=== PATIENT | female | born 1980 | race Caucasian/White ===

== ENCOUNTER 2017-09-26 17:00 | Emergency (ER) | payer SELFPAY ==
[2017-09-26 17:08] VITALS: BP 117/71
[2017-09-26] MEDS ORDERED: IBUPROFEN 800 MG TABLET PO ONE (17:10)
--- NOTE | 2017-09-26 17:11 | ER Document Report ---
ED General - General Chief Complaint: Knee Injury Stated Complaint: FALL, LEFT KNEE PAIN Time Seen by Provider: 09/26/17 17:09 Mode of Arrival: Wheelchair Information source: Patient Notes: 37-year-old female presents with complaints of left knee pain and presents her right clavicle. Patient notes she had a mechanical fall yesterday denies any syncope denies any chest pain. Patient notes that she has been able to ambulate but it hurts when she bends her knee. She denies any weakness numbness or laxity in the knee TRAVEL OUTSIDE OF THE [place] IN LAST 30 DAYS: No - HPI Onset: Yesterday Onset/Duration: Sudden Quality of pain: Achy Severity: Mild Pain Level: 1 Associated symptoms: Body/muscle aches Exacerbated by: Movement, Walking Relieved by: Denies Similar symptoms previously: No Recently seen / treated by doctor: No - Related Data Allergies/Adverse Reactions: No Known Allergies Allergy (Verified 09/26/17 17:00) Past Medical History - Social History Smoking Status: Current Every Day Smoker Cigarette use (# per day): Yes Chew tobacco use (# tins/day): No Smoking Education Provided: No Frequency of alcohol use: Occasional Drug Abuse: None Family History: Reviewed & Not Pertinent Patient has suicidal ideation: No Patient has homicidal ideation: No Renal/ Medical History: Denies: Hx Peritoneal Dialysis Review of Systems - Review of Systems Notes: REVIEW OF SYSTEMS: CONSTITUTIONAL : Denies fever, chills, or sweats. Denies recent illness. EENT: Denies eye, ear, throat, or mouth pain or symptoms. Denies nasal or sinus congestion or discharge. Denies throat, tongue, or mouth swelling or difficulty swallowing. CARDIOVASCULAR: Denies chest pain. Denies palpitations or racing or irregular heart beat. Denies ankle edema. RESPIRATORY: Denies cough, cold, or chest congestion. Denies shortness of breath, difficulty breathing, or wheezing. Admits to right clavicular pain GASTROINTESTINAL: Denies abdominal pain or distention. Denies nausea, vomiting , or diarrhea. Denies blood in vomitus, stools, or per rectum. Denies black, tarry stools. Denies constipation. GENITOURINARY: Denies difficulty urinating, painful urination, burning, frequency, blood in urine, or discharge. FEMALE GENITOURINARY: Denies vaginal bleeding, heavy or abnormal periods, irregular periods. Denies vaginal discharge or odor. MUSCULOSKELETAL: Admits knee pain SKIN: Denies rash, lesions or sores. HEMATOLOGIC : Denies easy bruising or bleeding. LYMPHATIC: Denies swollen, enlarged glands. NEUROLOGICAL: Denies confusion or altered mental status. Denies passing out or loss of consciousness. Denies dizziness or lightheadedness. Denies headache. Denies weakness or paralysis or loss of use of either side. Denies problems with gait or speech. Denies sensory loss, numbness, or tingling. Denies seizures. PSYCHIATRIC: Denies anxiety or stress. Denies depression, suicidal ideation, or homicidal ideation. ALL OTHER SYSTEMS REVIEWED AND NEGATIVE. PHYSICAL EXAMINATION: GENERAL: Well-appearing, well-nourished and in no acute distress. HEAD: Atraumatic, normocephalic. EYES: Pupils equal round and reactive to light, extraocular movements intact, conjunctiva are normal. ENT: Nares patent, oropharynx clear without exudates. Moist mucous membranes. NECK: Normal range of motion, supple without lymphadenopathy LUNGS: Breath sounds clear to auscultation bilaterally and equal. No wheezes rales or rhonchi. mild echymosis of the right clavicle HEART: Regular rate and rhythm without murmurs ABDOMEN: Soft, nontender, nondistended abdomen. No guarding, no rebound. No masses appreciated. Female : deferred Musculoskeletal: Normal range of motion, no pitting or edema. No cyanosis. no laxity of the left knee, full rom, mild tenderness with rom NEUROLOGICAL: Cranial nerves grossly intact. Normal speech, normal gait. Normal sensory, motor exams PSYCH: Normal mood, normal affect. SKIN: Warm, Dry, normal turgor, no rashes or lesions noted. Dictation was performed using [employer] voice recognition software Physical Exam - Vital signs Vitals: Temp Pulse Resp BP Pulse Ox 98.7 F 79 16 117/71 99 09/26/17 17:04 09/26/17 17:04 09/26/17 17:04 09/26/17 17:04 09/26/17 17:04 Course - Re-evaluation Re-evalutation: 09/26/17 18:24 Patient will be placed in knee immobilizer given crutches follow-up with orthopedics, clavicle x-ray noted no acute abnormality regarding Patient overall looks well is in no distress After performing a Medical Screening Examination, I estimate there is LOW risk for INTRACRANIAL HEMORRHAGE, UNSTABLE SPINE FRACTURE, CENTRAL CORD SYNDROME, CAUDA EQUINA, THORACIC AORTIC DISSECTION, PNEUMOTHORAX, PERFORATED BOWEL, RUPTURED ABDOMINAL AORTIC ANEURYSM, ACUTE TENDON RUPTURE, COMPARTMENT SYNDROME, or OPEN FRACTURE, thus I consider the discharge disposition reasonable. Also, there is no evidence or peritonitis, sepsis, or toxicity. I have reevaluated this patient multiple times and no significant life threatening changes are noted. The patient and I have discussed the diagnosis and risks, and we agree with discharging home to follow-up with their primary doctor with the understanding that symptoms and presentations can change. We also discussed returning to the Emergency Department immediately if new or worsening symptoms occur. We have discussed the symptoms which are most concerning (e.g., bloody stool, fever, changing or worsening pain, vomiting) that necessitate immediate return. - Vital Signs Vital signs: Temp Pulse Resp BP Pulse Ox 98.7 F 79 16 117/71 99 09/26/17 17:04 09/26/17 17:04 09/26/17 17:04 09/26/17 17:04 09/26/17 17:04 - Diagnostic Test Radiology reviewed: Image reviewed, Reports reviewed Discharge - Discharge Clinical Impression: Pain of right clavicle Left knee pain Qualifiers: Chronicity: acute Qualified Code(s): M25.562 - Pain in left knee Condition: Stable Disposition: HOME, SELF-CARE Instructions: Ice & Elevation ([facility]), Suspected Internal Knee Injury ([facility]) Referrals: ALOK LUA MD [ACTIVE STAFF] - Follow up in 3-5 days
--- NOTE | 2017-09-26 18:02 | RADIOLOGY REPORT (SQ) ---
EXAM DESCRIPTION: KNEE LEFT 3 VIEWS COMPLETED DATE/TIME: 09/26/2017 5:33 pm REASON FOR STUDY: fall COMPARISON: None. NUMBER OF VIEWS: Three views. TECHNIQUE: AP, lateral, and sunrise patella radiographic images acquired of the left knee. LIMITATIONS: None. FINDINGS: MINERALIZATION: Normal. BONES: No acute fracture or dislocation. JOINT: No effusion. SOFT TISSUES: No soft tissue swelling. No radio-opaque foreign body. IMPRESSION: No radiographic evidence of acute injury. TECHNICAL DOCUMENTATION: JOB ID: [id number] [place]-[id number] 2010 [employer]- All Rights Reserved
--- NOTE | 2017-09-26 18:04 | RADIOLOGY REPORT (SQ) ---
EXAM DESCRIPTION: CLAVICLE RIGHT COMPLETED DATE/TIME: 09/26/2017 5:34 pm REASON FOR STUDY: pain COMPARISON: None. NUMBER OF VIEWS: Two views. TECHNIQUE: Frontal and angled images were acquired of the right clavicle. LIMITATIONS: None. FINDINGS: MINERALIZATION: Normal. BONES: No acute fracture or dislocation. SOFT TISSUES: No obvious swelling or radiopaque foreign body. IMPRESSION: No radiographic evidence of acute injury. TECHNICAL DOCUMENTATION: JOB ID: [id number] 2010 [employer]- All Rights Reserved
== END 2017-09-26 18:33 | disposition home or self-care (01) ==
LOC: ER 17:00
DX: M25.511 Pain in right shoulder (principal); M25.562 Pain in left knee; M79.1 Myalgia; W19.XXXA Unspecified fall, initial encounter; F17.210 Nicotine dependence, cigarettes, uncomplicated
CPT/HCPCS: 99283; 73000; 73562; L1830

== ENCOUNTER 2019-08-25 23:45 | Emergency (ER) | payer BC ==
[2019-08-26 00:49] LABS: ABSOLUTE BASOPHILS # (AUTO) 0.1 10^3/uL (0.0-0.2); ABSOLUTE EOSINOPHILS # (AUTO) 1.5 10^3/uL (0.0-0.6); ABSOLUTE LYMPHOCYTES (AUTO) 1.5 10^3/uL (0.5-4.7); ABSOLUTE MONOCYTES (AUTO) 0.8 10^3/uL (0.1-1.4); ABSOLUTE NEUT (AUTO) 5.9 10^3/uL (1.7-8.2); BASOPHILS % (AUTO) 1.3 % (0-2); EOSINOPHILS % (AUTO) 15.7 % (0-6); HEMATOCRIT 42.4 % (36.0-47.0); HEMOGLOBIN 14.5 g/dL (12.0-15.5); LYMPHOCYTES % (AUTO) 15.3 % (13-45); MEAN CORPUSCULAR HEMOGLOBIN 30.7 pg (27.0-33.4); MEAN CORPUSCULAR HGB CONC 34.1 g/dL (32.0-36.0); MEAN CORPUSCULAR VOLUME 90 fl (80-97); MONOCYTES % (AUTO) 7.7 % (3-13); PLATELET COUNT 264 10^3/uL (150-450); RED BLOOD COUNT 4.71 10^6/uL (3.72-5.28); RED CELL DISTRIBUTION WIDTH 13.2 % (11.5-14.0); TOTAL CELLS COUNTED % (AUTO) 100 %; WHITE BLOOD COUNT 9.8 10^3/uL (4.0-10.5)
[2019-08-26 00:52] LABS: APPEARANCE,URINE CLEAR; BILIRUBIN,URINE NEGATIVE (NEGATIVE); COLOR,URINE STRAW; GLUCOSE, URINE NEGATIVE (NEGATIVE); KETONES,URINE NEGATIVE (NEGATIVE); LEUKOCYTE ESTERASE,URINE TRACE (NEGATIVE); NITRITE,URINE NEGATIVE (NEGATIVE); PROTEIN,URINE NEGATIVE (NEGATIVE); URINE SPECIFIC GRAVITY 1.004; UROBILINOGEN,URINE NEGATIVE mg/dL (<2.0)
[2019-08-26 01:13] LABS: URINE AMPHETAMINES SCREEN NEGATIVE; URINE BARBITURATES SCREEN NEGATIVE; URINE BENZODIAZEPINES SCREEN NEGATIVE; URINE COCAINE SCREEN UNCONFIRMED POSITIVE; URINE MARIJUANA (THC) SCREEN NEGATIVE; URINE METHADONE SCREEN NEGATIVE; URINE PHENCYCLIDINE SCREEN NEGATIVE
[2019-08-26 01:18] LABS: ACETAMINOPHEN < 10 ug/mL (10-30); ALBUMIN 3.6 g/dL (3.5-5.0); ALCOHOL < 10 mg/dL (NONE DETECTED); ALKALINE PHOSPHATASE 48 U/L (38-126); ANION GAP 6 (5-19); ASPARTATE AMINO TRANSFERASE 22 U/L (14-36); BILIRUBIN,TOTAL 1.1 mg/dL (0.2-1.3); BLOOD UREA NITROGEN 12 mg/dL (7-20); CALCIUM 9.4 mg/dL (8.4-10.2); CARBON DIOXIDE 26 mmol/L (22-30); CHLORIDE 109 mmol/L (98-107); GLUCOSE 107 mg/dL (75-110); POTASSIUM 3.5 mmol/L (3.6-5.0); SALICYLATE < 1.0 mg/dL (2.0-20.0)
--- NOTE | 2019-08-26 01:55 | ER Document Report ---
ED Psych Disorder / Suicide - General Chief Complaint: Overdose Stated Complaint: PSYCH Time Seen by Provider: 08/26/19 01:30 Primary Care Provider: QUEENIE CALLOWAY PA-C [Primary Care Provider] - Follow up as needed Notes: Patient is a 38-year-old female that comes emergency department for chief complaint of a suicide attempt. Patient arrives from home by EMS, patient states she thinks her roommate called EMS, reportedly patient took about 300 mg of Benadryl by mouth in an attempt to kill herself. Patient states she had just hung up from a conversation with her boyfriend who is in long term [id number]. Patient states that she was hoping she would "go to sleep and never wake up". She states she has attempted suicide in the past but will not tell me how. She denies any daily prescribed medications. She denies alcohol or recreational drugs. Patient denies taking anything else tonight. Patient states she just feels tired and denies any other complaints. Nursing staff reports to me that patient was found to be initially hypoglycemic at 61 and was given 15 g of oral glucose during transport. TRAVEL OUTSIDE OF THE [place] IN LAST 30 DAYS: No - Related Data Allergies/Adverse Reactions: No Known Allergies Allergy (Verified 09/26/17 17:00) Past Medical History - General Information source: Patient - Social History Smoking Status: Current Every Day Smoker Frequency of alcohol use: Occasional Drug Abuse: Marijuana Lives with: Family Family History: Reviewed & Not Pertinent Patient has suicidal ideation: Yes Patient has homicidal ideation: No Renal/ Medical History: Denies: Hx Peritoneal Dialysis - Immunizations Immunizations up to date: Yes Hx Diphtheria, Pertussis, Tetanus Vaccination: Yes Review of Systems - Review of Systems Constitutional: No symptoms reported EENT: No symptoms reported Cardiovascular: No symptoms reported Respiratory: No symptoms reported Gastrointestinal: No symptoms reported Genitourinary: No symptoms reported Female Genitourinary: No symptoms reported Musculoskeletal: No symptoms reported Skin: No symptoms reported Hematologic/Lymphatic: No symptoms reported Neurological/Psychological: See HPI Physical Exam - Vital signs Vitals: Temp Pulse Resp BP Pulse Ox 98.2 F 82 16 137/84 H 97 08/25/19 23:46 08/25/19 23:46 08/25/19 23:46 08/25/19 23:46 08/25/19 23:46 - Notes Notes: GENERAL: Sleeping but easily aroused HEAD: Normocephalic, atraumatic. EYES: Pupils equal, round, and reactive to light. Extraocular movements intact. ENT: Oral mucosa moist, tongue midline. Oropharynx unremarkable. Airway patent. NECK: Full range of motion. Supple. Trachea midline. LUNGS: Clear to auscultation bilaterally, no wheezes, rales, or rhonchi. No respiratory distress. HEART: Regular rate and rhythm. No murmur ABDOMEN: Soft, non-tender. Non-distended. EXTREMITIES: Moves all 4 extremities spontaneously. No edema, normal radial and dorsalis pedis pulses bilaterally. No cyanosis. BACK: no cervical, thoracic, lumbar midline tenderness. No saddle anesthesia, normal distal neurovascular exam. Moves all extremities in full range of motion. NEUROLOGICAL: Alert and oriented x3. Normal speech. Cranial nerves II through XII grossly intact. PSYCH: Normal affect, normal mood. Makes good eye contact, answers questions appropriately SKIN: Warm, dry, normal turgor. No rashes or lesions noted. Course - Re-evaluation Re-evalutation: 08/26/19 Preeti ARREDONDO reports that she had contacted poison control on arrival and they recommended EKG, Tylenol level, basic chemistries, and monitoring. No timeframe for monitoring was given but based on taking Benadryl I suspect this was approximately 6 hours for medical clearance, they will be contacted again to clarify and they state they will call back as well. On my evaluation patient is mildly drowsy but easily arousable to just verbal stimuli, alert and aware during evaluation. She is not tachycardic, hypotensive, or febrile. She will be on cardiac monitoring until she is medically cleared. CBC unremarkable, chemistry unremarkable with potassium that is borderline, urinalysis nonspecific and cultured, drug screen is negative except for cocaine. EKG unremarkable. 08/26/19 On repeated evaluations patient has remained sleeping but easily aroused simply to voice, she has not been tachycardic, she has not had any additional complaints. She has been monitored for over 6 hours. We contacted poison control and they state patient is now medically cleared. Patient is pending mental health team evaluation. Patient did state agreement. Discussed with Dr. Caro who completed the IVC paperwork by signing it. - Vital Signs Vital signs: Temp Pulse Resp BP Pulse Ox 97.6 F 108 H 27 H 94/74 L 95 08/26/19 03:50 08/26/19 03:50 08/26/19 06:01 08/26/19 06:01 08/26/19 04:01 - Laboratory Result Diagrams: 08/26/19 00:10 08/26/19 00:10 Laboratory results interpreted by me: 08/26/19 08/26/19 08/26/19 00:10 00:10 00:10 Eos % (Auto) 15.7 H Absolute Eos (auto) 1.5 H Potassium 3.5 L Chloride 109 H Total Protein 6.0 L Urine Blood SMALL H Ur Leukocyte Esterase TRACE H Salicylates < 1.0 L Acetaminophen < 10 L - EKG Interpretation by Me Additional EKG results interpreted by me: EKG shows sinus rhythm at a rate of 77, normal axis, QTC 449, no T wave inversions or ST segment changes in consecutive leads Discharge - Discharge Clinical Impression: Intentional overdose of drug in tablet form, Suicide attempt Condition: Stable Disposition: PSYCH HOSP/UNIT Referrals: QUEENIE CALLOWAY PA-C [Primary Care Provider] - Follow up as needed
--- NOTE | 2019-08-26 09:55 | PSYCHOLOGICAL NOTE ---
Psych Note - Psych Note Date seen by psych provider: 08/26/19 Time seen by psych provider: 08:00 Psych Note: Reason For Consult:Reported intentional overdose Consent Permissions:none provided Patient is a 38-year-old female that comes emergency department for chief co mplaint of a suicide attempt. Patient reports that she arrived via EMS because "I took some... A lot of Benadryl." She reports that she is "stressed out and depressed." She refuses to clarify or provide trigger. Patient denies any knowledge of who contacted law enforcement or EMS stating she did not tell anyone that she attempted to kill herself. She confirms she does have 2 roommates. Patient states that she attempted to harm herself previously however it was "a long time ago." Patient reports she does not remember what she did in this reports previous attempt. She denies any history of inpatient psychiatric treatment, outpatient mental health services, or any medications. Patient denies a history of self-harm behaviors (eg cutting, burning, etc). When asked if patient is glad she was brought to the hospital she states "yeah.. I do not know." Patient is alert and orientated to person, place, time and circumstance. Mood is dysphoric with blunted affect. Patient reports intentional overdose of Benadryl. She denies homicidal ideation. Delusions are absent and behaviors congruent with an intact reality based presentation ie organized and linear thought process. Eye contact is fair. Conversational speech is within normal rate, tone and prosody. Intellectual abilities appear to be within the average range. Attention and concentration are fair. Insight, judgment, impulse control are fair. Diagnosis: Major Depressive disorder; recurrent Medication recommendations per [facility]'s contracted psychiatrist Dr. Angelia ESTRADA are as follows pending Impression\\plan:Patient is recommended to continue under IVC. Patient confirms intentional overdose and one previous attempt "years ago." She has disclosed she has never received psychiatric treatment and does not full enagage about her trigger(s) or discussion on her history. Patient has been accepted to [facility]; transportation has been requested. Dr. Harris was consulted to care management of this patient; attending physicians in agreement with recommendations and disposition.
--- NOTE | 2019-08-26 13:46 | EKG REPORT ---
SEVERITY:- ABNORMAL ECG - SINUS RHYTHM LISA, CONSIDER BIATRIAL ABNORMALITIES : Confirmed by: Hazel Salas MD 26-Aug-2019 13:45:56
--- NOTE | 2019-08-26 16:33 | ER Document Report ---
Doctor's Note Notes: 08/26/19 16:32 patient without any complaints at this time. Patient has been accepted to psychiatric facility. Nontoxic, well-appearing.
[2019-08-27 00:32] VITALS: BP 108/63
--- NOTE | 2019-08-27 08:21 | ER Document Report ---
Doctor's Note Notes: 08/27/19 08:17 Transport officer is in the department to transport patient to [facility]. I went and spoke with the patient, she is calm, she is cooperative, she did not know that she was being transported to another facility however she took this news well. Patient is stable for transport at this time.
== END 2019-08-27 08:45 ==
LOC: ER 23:45
DX: T45.0X2A Poisoning by antiallergic and antiemetic drugs, intentional self-harm, initial encounter (principal); R40.0 Somnolence; Y92.009 Unspecified place in unspecified non-institutional (private) residence as the place of occurrence of the external cause; E16.2 Hypoglycemia, unspecified; F12.10 Cannabis abuse, uncomplicated; Z75.1 Person awaiting admission to adequate facility elsewhere; F17.200 Nicotine dependence, unspecified, uncomplicated
CPT/HCPCS: 36415; 80053; 80307; 81001; 82962; 84703; 85025; 87086; 87088; 87186; 93005; 93010; 99285

== ENCOUNTER 2020-03-07 00:11 | Emergency (ER) | payer BC ==
[2020-03-07] MEDS ORDERED: PREDNISONE 20 MG TABLET PO ONE (01:37)
--- NOTE | 2020-03-07 01:38 | ER Document Report ---
ED General - General Chief Complaint: Cough Stated Complaint: BAD COUGH Time Seen by Provider: 03/07/20 01:24 Primary Care Provider: QUEENIE CALLOWAY PA-C [Primary Care Provider] - Follow up as needed Notes: Patient is a 39-year-old female who comes emergency department for chief complaint of worsening cough for the past 3 days. Patient also states that earlier today her right upper eyelid started swelling and itching. She denies eye pain, visual changes, fever, shortness of breath, wheezing, sore throat, congestion, body aches, nausea, vomiting, or sick contacts. She smokes. She takes no daily medications. She denies any recreational drugs or medical history. TRAVEL OUTSIDE OF THE [place] IN LAST 30 DAYS: No - Related Data Allergies/Adverse Reactions: No Known Allergies Allergy (Verified 09/26/17 17:00) Past Medical History - General Information source: Patient - Social History Smoking Status: Current Every Day Smoker Smoking Education Provided: Yes - <3 min Frequency of alcohol use: Social Drug Abuse: None Lives with: Family Family History: Reviewed & Not Pertinent Patient has homicidal ideation: No Renal/ Medical History: Denies: Hx Peritoneal Dialysis - Immunizations Immunizations up to date: Yes Hx Diphtheria, Pertussis, Tetanus Vaccination: Yes Review of Systems - Review of Systems Constitutional: No symptoms reported EENT: See HPI Cardiovascular: No symptoms reported Respiratory: See HPI Gastrointestinal: No symptoms reported Genitourinary: No symptoms reported Female Genitourinary: No symptoms reported Musculoskeletal: No symptoms reported Skin: No symptoms reported Hematologic/Lymphatic: No symptoms reported Neurological/Psychological: No symptoms reported Physical Exam - Vital signs Vitals: Temp Pulse Resp BP Pulse Ox 98.5 F 58 L 16 118/70 100 03/07/20 01:18 03/07/20 01:18 03/07/20 01:18 03/07/20 01:18 03/07/20 01:18 - Notes Notes: GENERAL: Alert, interacts well. No acute distress. HEAD: Normocephalic, atraumatic. EYES: Pupils equal, round, and reactive to light. Extraocular movements intact. Sclera clear and not injected. There is slight edema and swelling of the right upper eyelid, however there is no shiny erythema, no tenderness, no other signs of swelling of the face or eyes. ENT: Oral mucosa moist, tongue midline. Oropharynx unremarkable. Airway patent. NECK: Full range of motion. Supple. Trachea midline. No lymphadenopathy. LUNGS: Clear to auscultation bilaterally, no wheezes, rales, or rhonchi. No respiratory distress. Non-tender chest wall. HEART: Regular rate and rhythm. No murmur ABDOMEN: Soft, non-tender. Non-distended. EXTREMITIES: Moves all 4 extremities spontaneously. No edema, normal radial and dorsalis pedis pulses bilaterally. No cyanosis. BACK: no cervical, thoracic, lumbar midline tenderness. No saddle anesthesia, normal distal neurovascular exam. Moves all extremities in full range of motion. NEUROLOGICAL: Alert and oriented x3. Normal speech. Cranial nerves II through XII grossly intact. Strength 5/5 in all extremities. PSYCH: Normal affect, normal mood. SKIN: Warm, dry, normal turgor. No rashes or lesions noted. Course - Re-evaluation Re-evalutation: Patient with occasional coughing episodes with a nonproductive cough, clear lungs, no hypoxia, no respiratory distress. She speaks in full sentences. No fever. Patient also has a slightly swollen and edematous right upper eyelid with reported itching to the area. Eye exam is unremarkable, no other signs of allergic reaction, patent airway. Given prednisone. Chest x-ray is unremarkable. Discussed options with patient. Patient is requesting be tested for COVID-19 and this was performed. Discussed smoking cessation with patient and she states agreement. I do have a low suspicion for COVID-19, evaluation is most consistent with mild bronchitis in the setting of smoking, possible random allergic reaction, no concerning findings otherwise. Patient will be placed on prednisone, antihistamines, discussed expectations, follow-up, and return precautions. Patient states appreciation and agreement with plan. - Vital Signs Vital signs: Temp Pulse Resp BP Pulse Ox 98.3 F 66 14 110/67 97 03/07/20 04:12 03/07/20 04:12 03/07/20 04:12 03/07/20 04:12 03/07/20 04:12 Discharge - Discharge Clinical Impression: Cough, Tobacco abuse Swollen eyelid Qualifiers: Laterality: right Qualified Code(s): H02.843 - Edema of right eye, unspecified eyelid Condition: Stable Disposition: HOME, SELF-CARE Additional Instructions: The swelling of your eyelid appears to be allergic, take the prednisone as prescribed, take the antihistamine as prescribed for 1 week, this should simply resolve with time. Your chest x-ray does not show any concerning findings, your evaluation is most consistent with bronchitis. The prednisone should help with this, you can also take the Tessalon as prescribed if needed for cough. You have been tested for COVID-19, you will be contacted with the results, see additional instructions in regards to this below. Return if you worsen including spiking fever, difficulty breathing, swelling of additional parts of your face, difficulty swallowing, or any other concerning symptoms. As a person under investigation for COVID-19, the [place] Department of Health and Human Services (division on public health) advises you to adhere to the following guidance until your test results are reported to you. If your test result is positive, you will receive additional information from your provider and your local health department at that time. Remain at home until you are cleared by the health provider or public health authorities. Keep a log of visitors to your home, notify any visitors to your home of your isolation status. If you plan to move to a new address or leave the county, notify the local health department in your County. Call your Doctor or seek care if you have an urgent medical need. Before seeking medical care, call him to get instructions from the provider before arriving at the medical office, clinic, or hospital. Notify them that you are being tested for the virus (COVID-19) so that arrangements can be made, as necessary, to prevent transmission to others in the healthcare setting. Next, notify the local health department in your county. If a medical emergency arises and you need to call 911, inform the first responders that you are being tested for the virus that causes COVID-19. Next, notify the local health department in your county. Prescriptions: Benzonatate [Tessalon Perles 100 mg Capsule] 100 mg PO Q8HP PRN #20 capsule PRN Reason: Cetirizine HCl 10 mg PO DAILY #30 tablet Prednisone [Deltasone 20 mg Tablet] 3 tab PO DAILY 5 Days #15 tablet Forms: Return to Work Referrals: QUEENIE CALLOWAY PA-C [Primary Care Provider] - Follow up as needed
--- NOTE | 2020-03-07 02:18 | RADIOLOGY REPORT (SQ) ---
CLINICAL HISTORY: worsening cough, smoker COMPARISON: None. TECHNIQUE: XR CHEST 1 VIEW 03/07/2020 1:37 AM CDT FINDINGS: Cardiac silhouette is normal in size. Lungs are clear without consolidation, atelectasis, mass or edema. There is no pleural effusion. There is no pneumothorax. There are no acute osseous findings. IMPRESSION: Clear lungs.
[2020-03-07 04:17] VITALS: BP 110/67
== END 2020-03-07 04:17 | disposition home or self-care (01) ==
LOC: ER 00:11
DX: R05 Cough (principal); H02.841 Edema of right upper eyelid; L29.9 Pruritus, unspecified; F17.200 Nicotine dependence, unspecified, uncomplicated; Z20.828 Contact with and (suspected) exposure to other viral communicable diseases
CPT/HCPCS: 99283; 87635; 71045; J7512; C9803